=== PATIENT | male | born 1960 | race Caucasian/White ===

== ENCOUNTER 2018-06-02 16:13 | Emergency (ER) | payer OTHER ==
[~2018-06-02] VITALS: Ht 165.1 cm; Wt 73.5 kg
[2018-06-02 16:16] VITALS: Ht 165.1 cm; Wt 73.5 kg
[2018-06-02 18:29] VITALS: BP 148/109
== END 2018-06-02 17:30 | disposition left against medical advice (07) ==
LOC: ED 16:13
DX: Z53.21 Procedure and treatment not carried out due to patient leaving prior to being seen by health care provider (principal)